=== PATIENT | female | born 1940 | race Hispanic/Latino ===

== ENCOUNTER → 2019-03-11 | Outpatient (CLI) | payer OTHER ==
[~2019-03-11] MED LIST: GABAPENTIN300 MG PO; GLIMEPIRIDE2 MG PO; LANTUS SC; METFORMIN HCL500 MG PO; OXYCODONE-ACET1 EAC1 PO; PERCOCET PO; SERTRALINE HCL100 MG PO; [UNRECOGNIZED DRUG - OTHER] PO
--- NOTE | 2019-03-11 20:01 | Diagnostic Imaging Report ---
Solid-phase gastric emptying study Reason for examination: Chronic nausea and vomiting The protocol used for this study is based on the Consensus Recommendations for Gastric Scintigraphy by the [place] [employer] and the Society of Nuclear Medicine. Clinical information: The patient is diabetic; blood sugar this morning is 82 mg/dL. The patient has not had previous gastrointestinal surgery. The patient is not on any medications expected to affect gastric motility. The patient has been fasting for at least 6 hours prior to this exam. Radiopharmaceutical: Tc-99m sulfur colloid 1 mCi Report: The radiopharmaceutical was added to Ensure Enlive 8 ounces. The patient took the meal orally without difficulty. Images were obtained of the abdomen in the anterior and posterior projections at 10 minutes post the meal and at 2, 3, and 4 hours. Uptake was determined from the geometric mean of the anterior and posterior counts and the counts were corrected for decay of the radiolabel. The percent gastric retention of the labeled meal at: 1-hour measurement was not obtained due to technical error. 2 hours was 87% (normal <60%) 3 hours was 13% (normal <30%) 4 hours was 11% (normal <10%) Impression: Mildly prolonged gastric emptying consistent with mild gastroparesis. Retention of more than 10% of the radiolabeled meal at 4 hours is considered the most sensitive biomarker for gastroparesis. Signed by: Dr. Mercy Aguilar M.D. on 03/11/2019 7:58 PM
== END ==
LOC: NM 06:56
PROVIDERS: ATTEND Internal Medicine Gastroenterology
DX: R11.10 Vomiting, unspecified (principal); E11.9 Type 2 diabetes mellitus without complications; E66.3 Overweight; Z71.3 Dietary counseling and surveillance
CPT/HCPCS: 78264; A9541

== ENCOUNTER → 2019-04-23 | Day surgery (SDC) | payer MEDICARE ==
[~2019-04-23] MED LIST changes: +FENTANYL CITRATE/PF 100MCG/2 ML INJ ONE; +MORPHINE SULFAT15 MG PEG; +NORCO 5-325 TA1 EACH PO; +OMEPRAZOLE40 MG PO; +PROPOFOL IV EMULSION 10 MG/ML 50 ML VIAL ONE; +TRESIBA SQ; +ZINC PO
--- OUTSIDE RECORDS SUMMARY | 2019-04-23 06:33 | XMS REPORT ---
Author Author [facility] Address Unknown Phone Unavailable Care Team Providers Care Allergy Nurse Name Role Phone Jazz ANTONIO Unavailable Unavailable Problems This patient has no known problems. Allergies, Adverse Reactions, Alerts This patient has no known allergies or adverse reactions. Medications This patient has no known medications. Encounters Start Date/Time End Date/Time Encounter Type Admission Type Attending [facility] Care Facility Care Department Encounter ID 2018-12-24 19:59:00 2018-12-24 19:59:00 Emergency E [id number] Results Test Description Test Time Test Comments Text Results Atomic Results Result Comments GASTRIC EMPTYING 2019-03-11 19:41:00 [place] [id number] Patient Name: KENDRA UGALDE MR #: [id number] : 1940 Age/Sex: 78/F Req #: [id number] [facility] Physician: Ordered by: CLINTON ANTONIO MD Report #: [id number] Location: [place] Room/Bed: Procedure: [id number] NM/GASTRIC EMPTYING Exam Date: 03/11/19 Exam Time: 909 REPORT STATUS: Signed Solid-phase gastric emptying study Reason for examinat ion: Chronic nausea and vomiting The protocol used for this study is based on the Consensus Recommendations for Gastric Scintigraphy by the [place] [employer] and the Society of Nuclear Medicine. Clinical information: The patient is diabetic; blood sugar this morning is 82 mg/dL. The patient has not had previous gastrointestinal surgery. The patient is not on any medications expected to affect gastric motility. The patient has been fasting for at least 6 hours prior to this exam. Radiopharmaceutical: Tc-99m sulfur colloid 1 mCi Report: The radiopharmaceutical was added to Ensure Enlive 8 ounces. The patient took the meal orally without difficulty. Images were obtained of the abdomen in the anterior and posterior projections at 10 minutes post the meal and at 2, 3, and 4 hours. Uptake was determined from the geometric mean of the anterior and posterior counts and the counts were corrected for decay of the radiolabel. The percent gastric retention of the labeled meal at: 1- hour measurement was not obtained due to technical error. 2 hours was 87% (normal <60%) 3 hours was 13% (normal <30%) 4 hours was 11% (normal <10%) Impression: Mildly prolonged gastric emptying consistent with mild gastroparesis. Retention of more than 10% of the radiolabeled meal at 4 hours is considered the most sensitive biomarker for gastroparesis. Signed by: Dr. David Medina M.D. on 03/11/2019 7:58 PM Dictated By: DAVID MEDIAN MD 57 Transcribed By: ROMA on 03/11/191957 COPY TO: CLINTON ANTONIO MD
[2019-04-23 07:44] LABS: BASOPHILS % 0.3 % (0.0-1.0); EOSINOPHILS # (AUTO) 0.2 (0.0-0.4); EOSINOPHILS % 2.6 % (0.0-6.0); HEMATOCRIT 29.6 % (34.2-44.1); HEMOGLOBIN 10.2 g/dL (12.0-16.0); LYMPHOCYTES # (AUTO) 2.2 (1.0-3.2); MEAN CORPUSCULAR HEMOGLOBIN 31.9 pg (28-32); MEAN CORPUSCULAR HGB CONC 34.5 g/dL (31-35); MEAN CORPUSCULAR VOLUME 92.5 fL (81-99); MONOCYTES # (AUTO) 0.4 (0.2-0.8); NEUTROPHILS # (AUTO) 4.2 (2.1-6.9); PLATELET COUNT 140 x10e3/uL (140-360); RED CELL DISTRIBUTION WIDTH 11.8 % (11.7-14.4)
[2019-04-23 09:54] VITALS: BP 138/76
== END | disposition home or self-care (01) ==
LOC: OR 06:31
PROVIDERS: ATTEND Internal Medicine Gastroenterology
DX: R11.2 Nausea with vomiting, unspecified (principal); E66.3 Overweight; Z68.26 Body mass index [BMI] 26.0-26.9, adult; Z71.3 Dietary counseling and surveillance; Z88.0 Allergy status to penicillin; E11.42 Type 2 diabetes mellitus with diabetic polyneuropathy; K29.70 Gastritis, unspecified, without bleeding; Z01.810 Encounter for preprocedural cardiovascular examination; Z01.812 Encounter for preprocedural laboratory examination
CPT/HCPCS: 36415; 43239; 85025; 88305; 88312; 93005; J2704; J3010

== ENCOUNTER → 2020-05-12 | Day surgery (SDC) | payer MEDICARE, OTHER ==
[2020-05-09 11:16] LABS: BASOPHILS % 0.5 % (0.0-1.0); EOSINOPHILS # (AUTO) 0.1 (0.0-0.4); HEMATOCRIT 29.7 % (34.2-44.1); HEMOGLOBIN 10.3 g/dL (12.0-16.0); LYMPHOCYTES # (AUTO) 1.4 (1.0-3.2); LYMPHOCYTES % 30.9 % (18.0-39.1); MEAN CORPUSCULAR HEMOGLOBIN 32.4 pg (28-32); MEAN CORPUSCULAR HGB CONC 34.7 g/dL (31-35); MEAN CORPUSCULAR VOLUME 93.4 fL (81-99); MONOCYTES # (AUTO) 0.2 (0.2-0.8); NEUTROPHILS # (AUTO) 2.7 (2.1-6.9); NEUTROPHILS % 60.4 % (38.7-80.0); PLATELET COUNT 125 x10e3/uL (140-360); RED BLOOD COUNT 3.18 x10e6/uL (3.6-5.1); RED CELL DISTRIBUTION WIDTH 12.4 % (11.7-14.4)
[~2020-05-12] MED LIST changes: +LANTUS SQ; +LOSARTAN POTASS25 MG PO; +MECLIZINE HCL12.5 MG PO; +MIDAZOLAM HCL 2 MG/2 ML VIAL ONE; -MORPHINE SULFAT15 MG PEG; +MORPHINE SULFAT15 MG PO; +PROPOFOL IV EMULSION 10 MG/ML 20 ML VIAL ONE; -PROPOFOL IV EMULSION 10 MG/ML 50 ML VIAL ONE
[2020-05-12 08:15] VITALS: BP 143/71
== END | disposition home or self-care (01) ==
LOC: OR 05:14
PROVIDERS: ATTEND Internal Medicine Gastroenterology
DX: K29.70 Gastritis, unspecified, without bleeding (principal); Z86.010 Personal history of colon polyps; K31.89 Other diseases of stomach and duodenum; K21.00 Gastro-esophageal reflux disease with esophagitis, without bleeding; K57.30 Diverticulosis of large intestine without perforation or abscess without bleeding; K44.9 Diaphragmatic hernia without obstruction or gangrene; K58.9 Irritable bowel syndrome, unspecified; K64.8 Other hemorrhoids; I10 Essential (primary) hypertension; E11.9 Type 2 diabetes mellitus without complications; Z71.3 Dietary counseling and surveillance; E66.3 Overweight; G62.9 Polyneuropathy, unspecified; D64.9 Anemia, unspecified; F32.9 Major depressive disorder, single episode, unspecified; I44.0 Atrioventricular block, first degree; Z88.0 Allergy status to penicillin; Z01.810 Encounter for preprocedural cardiovascular examination; Z01.812 Encounter for preprocedural laboratory examination; Z11.59 Encounter for screening for other viral diseases; Z79.4 Long term (current) use of insulin; Z68.27 Body mass index [BMI] 27.0-27.9, adult; Z85.72 Personal history of non-Hodgkin lymphomas; Z87.898 Personal history of other specified conditions
CPT/HCPCS: 36415 ×2; 43239; 45378; 82948; 85025; 88305; 88312; 93005; J2704; J3010; U0002; J2250